=== PATIENT | female | born 1970 | race American Indian/Alaskan Native ===

== ENCOUNTER 2020-03-03 12:56 | Observation (INO) | payer BC ==
--- NOTE | 2020-03-03 13:11 | Event Note ---
ED Screening Note Date of service: 03/03/20 Time: 13:10 ED Screening Note: 50 y/o female comes in as referral from PCP concern for DKA. Increase fatigue, dry mouth, sob This initial assessment/diagnostic orders/clinical plan/treatment(s) is/are subject to change based on patients health status, clinical progression and re- assessment by fellow clinical providers in the ED. Further treatment and workup at subsequent clinical providers discretion. Patient/guardian urged not to elope from the ED as their condition may be serious if not clinically assessed and managed. Initial orders include:
[2020-03-03 13:49] LABS: Basophils % (Auto) 0.8 % (0.0-1.8); Eosinophils # (Auto) 0.1 K/mm3 (0.0-0.4); Eosinophils % (Auto) 1.3 % (0.0-4.3); Hematocrit 47.3 % (30.3-42.9); Hemoglobin 15.5 gm/dl (10.1-14.3); Lymphocytes # (Auto) 1.6 K/mm3 (1.2-5.4); Lymphocytes % (Auto) 26.5 % (13.4-35.0); Mean Corpuscular HGB Conc 33 % (30-34); Mean Corpuscular Volume 81 fl (79-97); Monocytes # (Auto) 0.6 K/mm3 (0.0-0.8); Monocytes % (Auto) 10.4 % (0.0-7.3); Red Blood Count 5.84 M/mm3 (3.65-5.03)
[2020-03-03 14:03] LABS: Bacteria,Urine 1+ /HPF (Negative); Bilirubin,Urine NEG (Negative); Blood,Urine SM (Negative); Color,Urine Yellow (Yellow); Mucus,Urine FEW /HPF; Urobilinogen,Urine < 2.0 mg/dL (<2.0)
[2020-03-03 14:04] LABS: Platelet Count 167 K/mm3 (140-440)
[2020-03-03 14:10] LABS: Alanine Aminotransferase 15 units/L (7-56); Albumin 4.4 g/dL (3.9-5); BUN/Creatinine Ratio 16; Blood Urea Nitrogen 13 mg/dL (7-17); Calcium 10.5 mg/dL (8.4-10.2); Hemolysis Index 11
--- NOTE | 2020-03-03 14:26 | Emergency Department Report ---
ED General Adult HPI - General Chief complaint: Weakness Stated complaint: DKA Time Seen by Provider: 03/03/20 13:06 Source: patient, RN notes reviewed Mode of arrival: Ambulatory Limitations: No Limitations - History of Present Illness Initial comments: pmd: Dr Fitzgerald The patient is a pleasant 50-year-old female. She is not known to myself previously. She has a history of obesity and diabetes. She takes metformin, 850 twice daily. She endorses sporadic compliance with this medication. She is sent to the emergency room by her primary care doctors office for diabetic ketoacidosis. The patient denies cough, fever, and exposure to coronavirus. Symptoms today include fatigue, weakness, dry mouth, malaise, lightheadedness. She does not have physical pain. Symptoms present for the past 3 to 4 days. They are constant, getting worse, worsened with physical exertion and decreased with rest. There is no complaint of headache, neck pain, chest pain, abdominal pain, and she denies DVT and pulmonary embolism risk factors. -: days(s) Consistency: constant Improves with: rest Worsens with: movement Associated Symptoms: denies other symptoms, other (See history of present illness) - Related Data Allergies Allergy/AdvReac Type Severity Reaction Status Date / Time No Known Allergies Allergy Unverified 03/03/20 13:13 ED Review of Systems ROS: Stated complaint: DKA Other details as noted in HPI Comment: See history of present illness ED Past Medical Hx - Past Medical History Hx Diabetes: Yes - Surgical History Additional Surgical History: Ambilical repair - Social History Smoking Status: Never Smoker Substance Use Type: Alcohol ED Physical Exam - General Limitations: No Limitations General appearance: alert, in no apparent distress - Head Head exam: Present: atraumatic, normocephalic - Eye Eye exam: Present: normal appearance, EOMI. Absent: nystagmus - ENT ENT exam: Present: normal exam, normal external ear exam - Neck Neck exam: Present: normal inspection, full ROM. Absent: tenderness, meningismus - Respiratory Respiratory exam: Present: normal lung sounds bilaterally. Absent: respiratory distress, wheezes, rales, rhonchi, stridor, chest wall tenderness, accessory muscle use, decreased breath sounds, prolonged expiratory - Cardiovascular Cardiovascular Exam: Present: normal rhythm, tachycardia, normal heart sounds. Absent: systolic murmur, diastolic murmur, rubs, gallop - GI/Abdominal GI/Abdominal exam: Present: soft. Absent: distended, tenderness, guarding, rebound, rigid, pulsatile mass - Extremities Exam Extremities exam: Present: normal inspection, full ROM, other (2+ pulses noted in the bilateral upper and lower extremities. There is no palpable cord. negative Homans sign. Muscular compartments are soft. The pelvis is stable.). Absent: pedal edema, calf tenderness - Back Exam Back exam: Present: normal inspection, full ROM. Absent: tenderness, CVA tenderness (R), CVA tenderness (L), paraspinal tenderness, vertebral tenderness - Neurological Exam Neurological exam: Present: alert, normal gait, other (No facial droop. Tongue midline. Extraocular movements intact bilaterally. Facial sensation intact to light touch in V1, V2, V3 distribution bilaterally. 5 and a 5 strength in 4 extremities. Sensation intact to light touch in 4 extremities.). Absent: motor sensory deficit - Psychiatric Psychiatric exam: Present: anxious - Skin Skin exam: Present: warm, dry, intact, normal color. Absent: rash ED Course Vital Signs 03/03/20 13:10 Temperature 98.2 F Pulse Rate 130 H Respiratory 20 Rate Blood Pressure 179/117 O2 Sat by Pulse 99 Oximetry - Reevaluation(s) Reevaluation #1: 03/03/20 15:29 Found to be hypomagnesemic as well, intravenous and oral magnesium supplementation ordered Reevaluation #2: 03/03/20 15:54 Please note that this patient presented to the emergency department during the 2019 COVID-19 pandemic ED Medical Decision Making - Lab Data Result diagrams: 03/03/20 13:37 03/03/20 14:57 Vital Signs 03/03/20 13:10 Temperature 98.2 F Pulse Rate 130 H Respiratory 20 Rate Blood Pressure 179/117 O2 Sat by Pulse 99 Oximetry Lab Results 03/03/20 03/03/20 03/03/20 Range/Units 13:37 13:37 13:37 WBC 6.0 (4.5-11.0) K/mm3 RBC 5.84 H (3.65-5.03) M/mm3 Hgb 15.5 H (10.1-14.3) gm/dl Hct 47.3 H (30.3-42.9) % MCV 81 (79-97) fl MCH 27 L (28-32) pg MCHC 33 (30-34) % RDW 16.0 H (13.2-15.2) % Plt Count 167 (140-440) K/mm3 Lymph % (Auto) 26.5 (13.4-35.0) % [place] % (Auto) 10.4 H (0.0-7.3) % Eos % (Auto) 1.3 (0.0-4.3) % Baso % (Auto) 0.8 (0.0-1.8) % Lymph # 1.6 (1.2-5.4) K/mm3 [place] # 0.6 (0.0-0.8) K/mm3 Eos # 0.1 (0.0-0.4) K/mm3 Baso # 0.0 (0.0-0.1) K/mm3 Seg Neutrophils % 61.0 (40.0-70.0) % Seg Neutrophils # 3.7 (1.8-7.7) K/mm3 VBG pH 7.263 L (7.320-7.420) Sodium 131 L (137-145) mmol/L Potassium 4.0 (3.6-5.0) mmol/L Chloride 93.0 L (98-107) mmol/L Carbon Dioxide 13 L (22-30) mmol/L Anion Gap 29 mmol/L BUN 13 (7-17) mg/dL Creatinine 0.8 (0.7-1.2) mg/dL Estimated GFR > 60 ml/min BUN/Creatinine Ratio 16 % Glucose 389 H (65-100) mg/dL Calcium 10.5 H (8.4-10.2) mg/dL Total Bilirubin 0.50 (0.1-1.2) mg/dL AST 10 (5-40) units/L ALT 15 (7-56) units/L Alkaline Phosphatase 114 (35-129) units/L Total Protein 7.0 (6.3-8.2) g/dL Albumin 4.4 (3.9-5) g/dL Albumin/Globulin Ratio 1.7 % Urine Color (Yellow) Urine Turbidity (Clear) Urine pH (5.0-7.0) Ur Specific [place] (1.003-1.030) Urine Protein (Negative) mg/dL Urine Glucose (UA) (Negative) mg/dL Urine Ketones (Negative) mg/dL Urine Blood (Negative) Urine Nitrite (Negative) Urine Bilirubin (Negative) Urine Urobilinogen (<2.0) mg/dL Ur Leukocyte Esterase (Negative) Urine WBC (Auto) (0.0-6.0) /HPF Urine RBC (Auto) (0.0-6.0) /HPF U Epithel Cells (Auto) (0-13.0) /HPF Urine Bacteria (Auto) (Negative) /HPF Urine Mucus /HPF 03/03/20 Range/Units Unknown WBC (4.5-11.0) K/mm3 RBC (3.65-5.03) M/mm3 Hgb (10.1-14.3) gm/dl Hct (30.3-42.9) % MCV (79-97) fl MCH (28-32) pg MCHC (30-34) % RDW (13.2-15.2) % Plt Count (140-440) K/mm3 Lymph % (Auto) (13.4-35.0) % [place] % (Auto) (0.0-7.3) % Eos % (Auto) (0.0-4.3) % Baso % (Auto) (0.0-1.8) % Lymph # (1.2-5.4) K/mm3 [place] # (0.0-0.8) K/mm3 Eos # (0.0-0.4) K/mm3 Baso # (0.0-0.1) K/mm3 Seg Neutrophils % (40.0-70.0) % Seg Neutrophils # (1.8-7.7) K/mm3 VBG pH (7.320-7.420) Sodium (137-145) mmol/L Potassium (3.6-5.0) mmol/L Chloride (98-107) mmol/L Carbon Dioxide (22-30) mmol/L Anion Gap mmol/L BUN (7-17) mg/dL Creatinine (0.7-1.2) mg/dL Estimated GFR ml/min BUN/Creatinine Ratio % Glucose (65-100) mg/dL Calcium (8.4-10.2) mg/dL Total Bilirubin (0.1-1.2) mg/dL AST (5-40) units/L ALT (7-56) units/L Alkaline Phosphatase (35-129) units/L Total Protein (6.3-8.2) g/dL Albumin (3.9-5) g/dL Albumin/Globulin Ratio % Urine Color Yellow (Yellow) Urine Turbidity Clear (Clear) Urine pH 5.0 (5.0-7.0) Ur Specific [place] 1.027 (1.003-1.030) Urine Protein 30 mg/dl (Negative) mg/dL Urine Glucose (UA) >=500 (Negative) mg/dL Urine Ketones 80 (Negative) mg/dL Urine Blood Sm (Negative) Urine Nitrite Neg (Negative) Urine Bilirubin Neg (Negative) Urine Urobilinogen < 2.0 (<2.0) mg/dL Ur Leukocyte Esterase Neg (Negative) Urine WBC (Auto) 2.0 (0.0-6.0) /HPF Urine RBC (Auto) 3.0 (0.0-6.0) /HPF U Epithel Cells (Auto) 4.0 (0-13.0) /HPF Urine Bacteria (Auto) 1+ (Negative) /HPF Urine Mucus Few /HPF - EKG Data -: EKG Interpreted by Nv EKG shows normal: sinus rhythm Rate: normal, tachycardia - EKG Data When compared to previous EKG there are: previous EKG unavailable 03/03/20 14:55 No prior EKG available for comparison. Sinus rhythm, tachycardia, normal axis, QTC prolonged, CT interval within normal limits, not a STEMI, there is no prior for comparison - Radiology Data Radiology results: report reviewed, image reviewed X-ray of the chest is negative for acute disease - Medical Decision Making Differential diagnosis, including but not limited to: Dehydration, electrolyte derangement, pneumonia, diabetic ketoacidosis Assessment and plan: Pleasant and cooperative 50-year-old female with hyperglycemia, anion gap acidosis, acidotic venous pH, suggestive of diabetic ketoacidosis. She is afebrile with reassuring vital signs, with exception of tachycardia, likely secondary to volume depletion. Meets criteria for hospitalization, initiation of IV fluids, and insulin drip. Discussed plan of care with patient, and she is amenable to hospitalization and admission. Patient's history, physical, laboratory studies and pertinent findings were endorsed to the hospital physician, Dr. Farnsworth, who has accepted the patient to the medical service for presumed diabetic ketoacidosis. Urinalysis is reviewed and appreciated, patient did not endorse dysuria, or tone quency, or obstructive symptoms, suspect this is most likely asymptomatic bacteriuria. Critical Care Time: Yes Critical care time in (mins) excluding proc time.: 35 Critical care attestation.: If time is entered above; I have spent that time in minutes in the direct care of this critically ill patient, excluding procedure time. ED Disposition Clinical Impression: DKA (diabetic ketoacidoses), Dehydration, Hypomagnesemia Disposition: 09 OP ADMIT IP TO THIS HOSP Is pt being admited?: Yes Does the pt Need Aspirin: No Condition: Serious Instructions: Diabetic Ketoacidosis (ED)
--- NOTE | 2020-03-03 14:27 | XRay Report ---
CHEST 2 VIEWS INDICATION / CLINICAL INFORMATION: sob. COMPARISON: None available. FINDINGS: SUPPORT DEVICES: None. HEART / MEDIASTINUM: No significant abnormality. LUNGS / PLEURA: No significant pulmonary or pleural abnormality. .No pneumothorax. ADDITIONAL FINDINGS: No significant additional findings. IMPRESSION: 1. No acute findings. Signer Name: Coleman Lund MD Signed: 03/03/2020 2:22 PM Workstation Name: [id number]
[2020-03-03] MEDS ORDERED: DEXTROSE 50% IN WATER (25GM) 50 ML SYRINGE IV PRN ×2 (14:36→15:23)
[2020-03-03] MEDS ORDERED: SODIUM CHLORIDE 0.9% 1000 ML 2,000 ML IV ONE ×2 (14:36→14:38)
[2020-03-03] MEDS ORDERED: INSULIN REGULAR, HUMAN 100 UNITS/1 ML IV ONE (14:36)
[2020-03-03] MEDS ORDERED: POTASSIUM CHLORIDE ER 20 MEQ TAB PO ONE (14:37)
[2020-03-03] MEDS ORDERED: SODIUM BICARB 8.4% 50 MEQ/50 ML SYRINGE IV ONE (14:39)
[2020-03-03] MEDS ORDERED: D5W/0.45% NACL/KCL 20 MEQ 20 MEQ/1,000 ML BAG IV SCH (15:00)
[2020-03-03] MEDS ORDERED: INSULIN REGULAR, HUMAN 100 UNITS in SODIUM CHLORIDE 0.9% 99 ML IV SCH (15:00)
[2020-03-03] MEDS ORDERED: ACETAMINOPHEN 325 MG TAB PO PRN (15:21)
[2020-03-03] MEDS ORDERED: ONDANSETRON 4 MG/2 ML INJ IV PRN (15:21)
[2020-03-03] MEDS ORDERED: MAGNESIUM SULFATE 2 GM/50 ML BAG IV ONE (15:28)
[2020-03-03 15:32] LABS: Hemolysis Index 31
[2020-03-03] MEDS ORDERED: MAGNESIUM OXIDE 400 MG TAB PO STA (15:38)
[2020-03-03 15:48] LABS: Calcium 10.2 mg/dL (8.4-10.2)
[2020-03-03 15:55] LABS: BUN/Creatinine Ratio 1
[2020-03-03 15:56] LABS: Blood Urea Nitrogen < 1 mg/dL (7-17)
[2020-03-03] MEDS ORDERED: MAGNESIUM SULFATE 1 GM in SODIUM CHLORIDE 0.9% 50 ML IV ONE (16:00)
--- NOTE | 2020-03-03 19:42 | History and Physical Report ---
History of Present Illness Date of admission: 03/03/20 15:21 Chief complaint: My diabetes is out of control History of present illness: 50 YO Female with Obesity, DM presents to ED for evaluation. Patient states that she was recently started on an oral hypoglycemic medication by her primary doctor. Patient also reports that she has experienced elevated blood glucose levels. Patient was seen and evaluated by her primary care physician today and was found to have elevated blood glucose levels around 400. Patient was instructed to seek further care at [facility]. Patient transported to [facility] via private vehicle. Patient seen and evaluated in the emergency department. Lab and imaging studies reviewed. Patient found to have uncontrolled diabetes mellitus with a blood glucose of 389. Patient treated with IV fluid resuscitation therapy, and sliding scale insulin therapy. Patient denies fever, chills, chest pain, palpitation, productive cough, fever, known ill contacts, or known expos ure to coronavirus. Patient placed in observation status and treated with IV fluid resuscitation therapy and sliding scale insulin therapy due to increased risk of decompensation. No prior admission for review. All medication listed at time of admission has been reconciled. Past History Past Medical History: diabetes, other (See HPI) Past Surgical History: hernia repair Social history: single. denies: smoking, alcohol abuse, prescription drug abuse Family history: diabetes, hypertension Medications and Allergies Allergies Allergy/AdvReac Type Severity Reaction Status Date / Time No Known Allergies Allergy Unverified 03/03/20 13:13 Active Meds: Active Medications Acetaminophen (Tylenol) 650 mg PO Q4H PRN PRN Reason: Pain MILD(1-3)/Fever >100.5/FERRARO Dextrose (D50w (25gm) Syringe) 50 ml IV Q30MIN PRN; Protocol PRN Reason: Hypoglycemia Insulin Human Lispro (Humalog) 0 unit SUB-Q Q6HR MASHA; Protocol Ondansetron HCl (Zofran) 4 mg IV Q8H PRN PRN Reason: Nausea And Vomiting Sodium Chloride (Sodium Chloride Flush Syringe 10 Ml) 10 ml IV BID MASHA Sodium Chloride (Sodium Chloride Flush Syringe 10 Ml) 10 ml IV PRN PRN PRN Reason: LINE FLUSH Review of Systems Constitutional: no weight loss, no weight gain, no fever, no chills Ears, nose, mouth and throat: no ear pain, no ear discharge, no tinnitis, no decreased hearing, no nose pain Breasts: no change in shape, no swelling, no mass Cardiovascular: no chest pain, no orthopnea, no palpitations, no rapid/irregular heart beat Respiratory: no cough, no cough with sputum, no excessive sputum, no hemoptysis, no shortness of breath, no dyspnea on exertion Gastrointestinal: no abdominal pain, no nausea, no vomiting, no diarrhea, no constipation Genitourinary Female: no pelvic pain, no flank pain, no menorrhagia, no dysuria, no urinary frequency Rectal: no pain, no incontinence, no bleeding Musculoskeletal: no neck stiffness, no neck pain, no shooting arm pain, no arm numbness/tingling Integumentary: no rash, no pruritis, no redness, no sores, no jaundice Neurological: no transient paralysis, no paralysis, no weakness, no numbness, no tingling, no tremors, no ataxia Psychiatric: no anxiety, no memory loss, no change in sleep habits, no sleep disturbances, no change in libido, no suicidal ideation, no disorientation Endocrine: polyphagia, polydipsia, polyuria, nocturia, no cold intolerance, no heat intolerance, no weight change, no proptosis, no deepening of the voice Hematologic/Lymphatic: no easy bruising, no easy bleeding, no lymphadenopathy, no lymphedema Allergic/Immunologic: no urticaria, no allergic rhinitis, no persistent in fections, no anaphylaxis Exam - Constitutional Vitals: Temp Pulse Resp BP Pulse Ox 98.2 F 100 H 17 134/58 100 03/03/20 13:10 03/03/20 18:46 03/03/20 18:46 03/03/20 18:46 03/03/20 18:46 General appearance: Present: mild distress - EENT Eyes: Present: PERRL ENT: hearing intact, clear oral mucosa - Neck Neck: Present: supple, normal ROM - Respiratory Respiratory effort: normal Respiratory: bilateral: CTA - Cardiovascular Heart Sounds: Present: S1 & S2. Absent: rub, click - Extremities Extremities: pulses symmetrical, No edema Peripheral Pulses: within normal limits - Abdominal General gastrointestinal: Present: soft, non-tender, non-distended, normal bowel sounds Female genitourinary: Present: normal - Integumentary Integumentary: Present: clear, warm, dry - Musculoskeletal Musculoskeletal: gait normal, strength equal bilaterally - Psychiatric Psychiatric: appropriate mood/affect, intact judgment & insight - Neurologic Neurologic: CNII-XII intact, moves all extremities Results - Labs CBC & Chem 7: 03/03/20 13:37 03/03/20 14:57 Labs: Abnormal lab results 03/03/20 03/03/20 03/03/20 Range/Units 13:21 13:37 13:37 RBC 5.84 H (3.65-5.03) M/mm3 Hgb 15.5 H (10.1-14.3) gm/dl Hct 47.3 H (30.3-42.9) % MCH 27 L (28-32) pg RDW 16.0 H (13.2-15.2) % [place] % (Auto) 10.4 H (0.0-7.3) % VBG pH (7.320-7.420) Sodium 131 L (137-145) mmol/L Chloride 93.0 L (98-107) mmol/L Carbon Dioxide 13 L (22-30) mmol/L BUN (7-17) mg/dL Glucose 389 H (65-100) mg/dL POC Glucose 301 H (70-105) Calcium 10.5 H (8.4-10.2) mg/dL Magnesium (1.7-2.3) mg/dL 03/03/20 03/03/20 03/03/20 Range/Units 13:37 14:23 14:57 RBC (3.65-5.03) M/mm3 Hgb (10.1-14.3) gm/dl Hct (30.3-42.9) % MCH (28-32) pg RDW (13.2-15.2) % [place] % (Auto) (0.0-7.3) % VBG pH 7.263 L (7.320-7.420) Sodium (137-145) mmol/L Chloride (98-107) mmol/L Carbon Dioxide (22-30) mmol/L BUN (7-17) mg/dL Glucose (65-100) mg/dL POC Glucose (70-105) Calcium (8.4-10.2) mg/dL Magnesium 1.20 L 1.30 L (1.7-2.3) mg/dL 03/03/20 03/03/20 Range/Units 14:57 17:50 RBC (3.65-5.03) M/mm3 Hgb (10.1-14.3) gm/dl Hct (30.3-42.9) % MCH (28-32) pg RDW (13.2-15.2) % [place] % (Auto) (0.0-7.3) % VBG pH (7.320-7.420) Sodium 130 L (137-145) mmol/L Chloride 92.8 L (98-107) mmol/L Carbon Dioxide 10 L (22-30) mmol/L BUN < 1 L (7-17) mg/dL Glucose 371 H (65-100) mg/dL POC Glucose 196 H (70-105) Calcium (8.4-10.2) mg/dL Magnesium (1.7-2.3) mg/dL Assessment and Plan - Patient Problems (1) Uncontrolled diabetes mellitus Current Visit: Yes Status: Acute Qualifiers: Diabetes mellitus type: type 1 Plan to address problem: Sliding scale insulin therapy, Accu-Chek, hypo-glycemia protocol, dietary education conducted, carbohydrate counting, serial blood glucose log as outpatient (2) Volume depletion Current Visit: Yes Status: Acute Plan to address problem: IV fluid resuscitation therapy, monitor urine output every shift. (3) Obesity (BMI 35.0-39.9 without comorbidity) Current Visit: Yes Status: Acute Plan to address problem: Balanced diet, increase physical activity at discharge. (4) DVT prophylaxis Current Visit: Yes Status: Acute Plan to address problem: SCD to bilateral lower extremities while in bed, patient is ambulatory.
[2020-03-03] MEDS: INSULIN LISPRO 100 UNIT/ML SUB-Q SCH (21:31)
[2020-03-04] MEDS: INSULIN LISPRO 100 UNIT/ML SUB-Q SCH ×3 (00:03→12:02)
--- NOTE | 2020-03-04 09:15 | Progress Note ---
Assessment and Plan Assessment and plan: -- Uncontrolled diabetes mellitus Current Visit: Yes Status: Acute Sliding scale insulin therapy, Accu-Chek, hypo-glycemia protocol, dietary education conducted, carbohydrate counting, serial blood glucose log as outpatient --Pseudohyponatremia; --Hypomagnesemia --Volume depletion Current Visit: Yes Status: Acute IV fluid resuscitation therapy, monitor urine output every shift. -- Obesity (BMI 35.0-39.9 without comorbidity) Current Visit: Yes Status: Acute Balanced diet, increase physical activity at discharge. -- DVT prophylaxis Current Visit: Yes Status: Acute SCD to bilateral lower extremities while in bed, patient is ambulatory. Hospitalist Physical - Constitutional Vitals: Temp Pulse Resp BP Pulse Ox 99.2 F 81 18 102/44 97 03/04/20 04:01 03/04/20 04:01 03/04/20 04:01 03/04/20 04:01 03/04/20 04:01 General appearance: Present: mild distress Results - Labs CBC & Chem 7: 03/03/20 13:37 03/03/20 14:57 Labs: Laboratory Last Values WBC 6.0 K/mm3 (4.5-11.0) 03/03/20 13:37 RBC 5.84 M/mm3 (3.65-5.03) H 03/03/20 13:37 Hgb 15.5 gm/dl (10.1-14.3) H 03/03/20 13:37 Hct 47.3 % (30.3-42.9) H 03/03/20 13:37 MCV 81 fl (79-97) 03/03/20 13:37 MCH 27 pg (28-32) L 03/03/20 13:37 MCHC 33 % (30-34) 03/03/20 13:37 RDW 16.0 % (13.2-15.2) H 03/03/20 13:37 Plt Count 167 K/mm3 (140-440) 03/03/20 13:37 Lymph % (Auto) 26.5 % (13.4-35.0) 03/03/20 13:37 [place] % (Auto) 10.4 % (0.0-7.3) H 03/03/20 13:37 Eos % (Auto) 1.3 % (0.0-4.3) 03/03/20 13:37 Baso % (Auto) 0.8 % (0.0-1.8) 03/03/20 13:37 Lymph # 1.6 K/mm3 (1.2-5.4) 03/03/20 13:37 [place] # 0.6 K/mm3 (0.0-0.8) 03/03/20 13:37 Eos # 0.1 K/mm3 (0.0-0.4) 03/03/20 13:37 Baso # 0.0 K/mm3 (0.0-0.1) 03/03/20 13:37 Seg Neutrophils % 61.0 % (40.0-70.0) 03/03/20 13:37 Seg Neutrophils # 3.7 K/mm3 (1.8-7.7) 03/03/20 13:37 VBG pH 7.263 (7.320-7.420) L 03/03/20 13:37 Sodium 130 mmol/L (137-145) L 03/03/20 14:57 Potassium 3.8 mmol/L (3.6-5.0) 03/03/20 14:57 Chloride 92.8 mmol/L (98-107) L 03/03/20 14:57 Carbon Dioxide 10 mmol/L (22-30) L 03/03/20 14:57 Anion Gap 31 mmol/L 03/03/20 14:57 BUN < 1 mg/dL (7-17) L 03/03/20 14:57 Creatinine 0.7 mg/dL (0.7-1.2) 03/03/20 14:57 Estimated GFR > 60 ml/min 03/03/20 14:57 BUN/Creatinine Ratio 1 % 03/03/20 14:57 Glucose 371 mg/dL (65-100) H 03/03/20 14:57 POC Glucose 166 (70-105) H 03/04/20 06:40 Calcium 10.2 mg/dL (8.4-10.2) 03/03/20 14:57 Phosphorus 3.30 mg/dL (2.5-4.5) 03/03/20 14:57 Magnesium 1.30 mg/dL (1.7-2.3) L 03/03/20 14:57 Total Bilirubin 0.50 mg/dL (0.1-1.2) 03/03/20 13:37 AST 10 units/L (5-40) 03/03/20 13:37 ALT 15 units/L (7-56) 03/03/20 13:37 Alkaline Phosphatase 114 units/L (35-129) 03/03/20 13:37 Total Creatine Kinase 58 units/L (30-135) 03/03/20 14:23 Total Protein 7.0 g/dL (6.3-8.2) 03/03/20 13:37 Albumin 4.4 g/dL (3.9-5) 03/03/20 13:37 Albumin/Globulin Ratio 1.7 % 03/03/20 13:37 TSH 2.150 mlU/mL (0.270-4.200) 03/03/20 14:23 Urine Color Yellow (Yellow) 03/03/20 Unknown Urine Turbidity Clear (Clear) 03/03/20 Unknown Urine pH 5.0 (5.0-7.0) 03/03/20 Unknown Ur Specific [place] 1.027 (1.003-1.030) 03/03/20 Unknown Urine Protein 30 mg/dl mg/dL (Negative) 03/03/20 Unknown Urine Glucose (UA) >=500 mg/dL (Negative) 03/03/20 Unknown Urine Ketones 80 mg/dL (Negative) 03/03/20 Unknown Urine Blood Sm (Negative) 03/03/20 Unknown Urine Nitrite Neg (Negative) 03/03/20 Unknown Urine Bilirubin Neg (Negative) 03/03/20 Unknown Urine Urobilinogen < 2.0 mg/dL (<2.0) 03/03/20 Unknown Ur Leukocyte Esterase Neg (Negative) 03/03/20 Unknown Urine WBC (Auto) 2.0 /HPF (0.0-6.0) 03/03/20 Unknown Urine RBC (Auto) 3.0 /HPF (0.0-6.0) 03/03/20 Unknown U Epithel Cells (Auto) 4.0 /HPF (0-13.0) 03/03/20 Unknown Urine Bacteria (Auto) 1+ /HPF (Negative) 03/03/20 Unknown Urine Mucus Few /HPF 03/03/20 Unknown [place]/IV: Voiding Method Toilet IV Catheter Type [Right Hand] INT / Saline Lock Active Medications - Current Medications Current Medications: Generic Name Dose Route Start Last Admin Trade Name Freq PRN Reason Stop Dose Admin Acetaminophen 650 mg 03/03/20 15:21 Tylenol PO Q4H PRN Pain MILD(1-3)/Fever >100.5/FERRARO Dextrose 50 ml 03/03/20 15:23 D50w (25gm) Syringe IV Q30MIN PRN Hypoglycemia Protocol Insulin Human Lispro 0 unit 03/03/20 18:00 03/04/20 06:38 Humalog SUB-Q 4 unit Q6HR MASHA Administration Protocol Ondansetron HCl 4 mg 03/03/20 15:21 Zofran IV Q8H PRN Nausea And Vomiting Sodium Chloride 10 ml 03/03/20 22:00 03/03/20 21:30 Sodium Chloride Flush Syringe 10 Ml IV 10 ml BID MASHA Administration Sodium Chloride 10 ml 03/03/20 15:21 Sodium Chloride Flush Syringe 10 Ml IV PRN PRN LINE FLUSH
[2020-03-04] MEDS ORDERED: SODIUM CHLORIDE 0.9% 1000 ML 1,000 ML IV SCH (09:30)
[2020-03-04 11:08] LABS: BUN/Creatinine Ratio 13; Blood Urea Nitrogen 9 mg/dL (7-17); Calcium 9.3 mg/dL (8.4-10.2); Hemolysis Index 8
[2020-03-04] MEDS ORDERED: FAMOTIDINE 10 MG TAB PO SCH (12:00)
[2020-03-04] MEDS ORDERED: FAMOTIDINE 20 MG TAB PO SCH (12:00)
[2020-03-04] MEDS ORDERED: MAGNESIUM SULFATE 4 GM/100 ML BAG IV ONE (14:15)
[2020-03-04] MEDS ORDERED: POTASSIUM CHLORIDE ER 20 MEQ TAB PO ONE (14:16)
[2020-03-04] MEDS: metFORMIN 850 MG TAB PO SCH ×2 (14:17→17:45)
--- NOTE | 2020-03-04 14:50 | Discharge Summary ---
Providers - Providers Date of Admission: 03/03/20 15:21 Date of discharge: 03/04/20 Attending physician: MAKSIM ZURITA Primary care physician: LILLIAN BROOKE Hospitalization Reason for admission: Hyperglycemia/uncontrolled diabetes mellitus Condition: Fair Pertinent studies: Chest x-ray Hospital course: 50 YO Female with Obesity, DM presents to ED for evaluation. Patient states that she was recently started on an oral hypoglycemic medication by her primary doctor. Patient also reports that she has experienced elevated blood glucose levels. Patient was seen and evaluated by her primary care physician today and was found to have elevated blood glucose levels around 400. Patient was instructed to seek further care at [facility]. Patient transported to [facility] via private vehicle. Patient seen and evaluated in the emergency department. Lab and imaging studies reviewed. Patient found to have uncontrolled diabetes mellitus with a blood glucose of 389. Patient treated with IV fluid resuscitation therapy, and sliding scale insulin therapy. Discharge diagnosis: -- Uncontrolled diabetes mellitus Current Visit: Yes Status: Acute Moderate control secondary to noncompliance , Accu-Cheks sliding scale coverage ADA diet, oral hypoglycemics, insulin as needed A1c 13.5, diabetic diet education, diabetic education --Pseudohyponatremia; Current Visit: Yes Status: Acute Due to hyperglycemia, improving as the blood sugars are improved. --Hypomagnesemia Current Visit: Yes Status: Acute Replenished with magnesium sulfate. --Hypokalemia; Current Visit: Yes Status: Acute Replanish with KCl --Volume depletion Current Visit: Yes Status: Acute IV fluid resuscitation therapy, monitor urine output every shift. -- Obesity (BMI 35.0-39.9 without comorbidity) Current Visit: Yes Status: Acute Balanced diet, increase physical activity at discharge. --Medical noncompliance; Patient strongly advised to comply with medications diet F/U visits and exercise -- DVT prophylaxis Current Visit: Yes Status: Acute . Will complete magnesium and potassium replacement And DC home Patient will check magnesium and potassium at PMDs office in 2 to 3 days Disposition: DC-01 TO HOME OR SELFCARE Time spent for discharge: 32 min Core Measure Documentation - Palliative Care Palliative Care/ Comfort Measures: Not Applicable - Core Measures Any of the following diagnoses?: none Exam - Constitutional Vitals: Temp Pulse Resp BP Pulse Ox 98.1 F 104 H 18 154/76 98 03/04/20 09:29 03/04/20 09:29 03/04/20 09:29 03/04/20 09:29 03/04/20 09:29 General appearance: Present: no acute distress, well-nourished, obese - EENT Eyes: Present: PERRL, EOM intact - Neck Neck: Present: supple, normal ROM - Respiratory Respiratory effort: normal Respiratory: bilateral: diminished, negative: rales, rhonchi, wheezing - Cardiovascular Rhythm: regular Heart Sounds: Present: S1 & S2 - Extremities Extremities: no ischemia, No edema - Abdominal General gastrointestinal: Present: soft, non-tender, non-distended, normal bowel sounds - Integumentary Integumentary: Present: clear, warm - Musculoskeletal Musculoskeletal: strength equal bilaterally - Psychiatric Psychiatric: appropriate mood/affect, cooperative - Neurologic Neurologic: CNII-XII intact, moves all extremities Plan Activity: no restrictions Diet: diabetic Additional Instructions: Patient strongly advised to comply with medications, ADA diet, exercise and follow-up visits. Patient advised to see private rackman for better control of blood sugars. Advised exercise as tolerated and weight reduction Follow up with: LILLIAN BROOKE JR, MD [Primary Care Provider] - 3-5 Days Prescriptions: metFORMIN [Glucophage] 850 mg PO BIDDIAB #60 tablet Insulin Regular, Human [Novolin R] 5 units SC ACHS #2 vial Famotidine [Pepcid] 20 mg PO BID #30 tablet lisinopriL [Zestril TAB] 10 mg PO QDAY #30 tablet
[2020-03-04 17:00] VITALS: BP 150/81
--- NOTE | 2020-03-04 19:11 | Event Note ---
Date: 03/04/20 Hypomagnesemia; corrected with magnesium sulfate Hypokalemia; corrected with oral KCl Follow-up magnesium level; 5.6 Patient advised to follow with primary care physician in 2 to 3 days to check magnesium and potassium
[2020-03-05] MEDS ORDERED: LISINOPRIL 10 MG TAB PO SCH (10:00)
== END 2020-03-04 18:40 | disposition home or self-care (01) ==
LOC: ED 12:56 → 4A 15:21
PROVIDERS: ADMIT Internal Medicine; ATTEND Internal Medicine
DX: E11.65 Type 2 diabetes mellitus with hyperglycemia (principal); E86.9 Volume depletion, unspecified; E66.9 Obesity, unspecified; E83.42 Hypomagnesemia; E87.6 Hypokalemia; E87.1 Hypo-osmolality and hyponatremia; E11.10 Type 2 diabetes mellitus with ketoacidosis without coma; E86.0 Dehydration; Z91.19 Patient's noncompliance with other medical treatment and regimen; Z79.4 Long term (current) use of insulin; Z79.899 Other long term (current) drug therapy
CPT/HCPCS: 36415; 71046; 80048; 80053; 81001; 82550; 82805; 82962; 83036; 83735; 84100; 84443; 85025; 93005; 96361; 96365; 96366; 96372; 96375; 99291; G0378; J3475; J7030; J1815

== ENCOUNTER 2020-03-07 22:51 | Emergency (ER) | payer BC ==
[2020-03-08] MEDS ORDERED: LORazepam 2 MG/ML VIAL IV STA (00:19)
[2020-03-08] MEDS ORDERED: SODIUM CHLORIDE 0.9% 1000 ML 1,000 ML IV ONE ×2 (00:19→01:51)
[2020-03-08] MEDS ORDERED: hydrALAZINE 20 MG/1 ML INJ IV ONE (00:19)
--- NOTE | 2020-03-08 00:20 | Emergency Department Report ---
<ILEANA ARREOLA - Last Filed: 03/08/20 01:14> ED General Adult HPI - General Chief complaint: Hyperglycemia Stated complaint: HIGH BLOOD SUGAR AND BLOOD PRESSURE Time Seen by Provider: 03/08/20 00:03 Source: patient, RN notes reviewed, old records reviewed Mode of arrival: Ambulatory Limitations: No Limitations - History of Present Illness Initial comments: Patient is a 50-year-old female whom I have evaluated in the past. She has a history of diabetes, hypertension, obesity, and was recently admitted to this hospital for diabetic ketoacidosis by myself. Patient presented to the ER with a complaint of anxiety, chest tightness, chest racing, and persistently high blood sugar levels. She reports that she is checking her blood sugar levels frequently, and has found them to be elevated. This is causing her to feel very anxious, and her anxiety is associated with chest tightness and heart racing. She denies vomiting, diaphoresis and exertional shortness of breath. There is no calf pain or calf swelling. The patient is insistent that since her recent hospitalization, she has been very conscientious about her diet, and medication administration. There is no complaint of fever, cough, urinary symptom, abdomi nal pain, there is no complaint of headache, and the chest pressure and discomfort does not radiate to the back, arms or neck. She reports that she is feeling very very anxious. -: Gradual, days(s) Location: chest Radiation: non-radiation Quality: other (Pressure, heart racing) Consistency: constant Improves with: none Worsens with: other (Symptoms worsen as the patient thinks about her hyperglycemia) - Related Data Previous Rx's Medication Instructions Recorded Last Taken Type Famotidine [Pepcid] 20 mg PO BID #30 tablet 03/04/20 Unknown Rx Insulin Regular, Human [Novolin R] 5 units SC ACHS #2 vial 03/04/20 Unknown Rx lisinopriL [Zestril TAB] 10 mg PO QDAY #30 tablet 03/04/20 Unknown Rx metFORMIN [Glucophage] 850 mg PO BIDDIAB #60 tablet 03/04/20 Unknown Rx Allergies Allergy/AdvReac Type Severity Reaction Status Date / Time No Known Allergies Allergy Unverified 03/03/20 13:13 ED Review of Systems Constitutional: denies: fever Eyes: denies: eye discharge ENT: denies: congestion Respiratory: denies: wheezing Cardiovascular: palpitations. denies: syncope Gastrointestinal: denies: vomiting Genitourinary: denies: dysuria Musculoskeletal: as per HPI Skin: as per HPI Neurological: as per HPI Psychiatric: as per HPI, anxiety Hematological/Lymphatic: as per HPI ED Past Medical Hx - Past Medical History Hx Hypertension: Yes Hx Diabetes: Yes - Surgical History Additional Surgical History: Umbilical hernia repair x 3 - Social History Smoking Status: Never Smoker Substance Use Type: Alcohol - Medications Home Medications: Home Medications Medication Instructions Recorded Confirmed Last Taken Type Famotidine [Pepcid] 20 mg PO BID #30 tablet 03/04/20 Unknown Rx Insulin Regular, Human [Novolin R] 5 units SC ACHS #2 vial 03/04/20 Unknown Rx lisinopriL [Zestril TAB] 10 mg PO QDAY #30 tablet 03/04/20 Unknown Rx metFORMIN [Glucophage] 850 mg PO BIDDIAB #60 tablet 03/04/20 Unknown Rx ED Physical Exam - General Limitations: No Limitations General appearance: alert, anxious, in distress, obese - Head Head exam: Present: atraumatic, normocephalic - Eye Eye exam: Present: normal appearance, EOMI. Absent: nystagmus - ENT ENT exam: Present: normal exam, normal orophraynx, mucous membranes moist, normal external ear exam - Neck Neck exam: Present: normal inspection, full ROM. Absent: tenderness, meningismus - Respiratory Respiratory exam: Present: normal lung sounds bilaterally. Absent: respiratory distress - Cardiovascular Cardiovascular Exam: Present: normal rhythm, tachycardia, normal heart sounds. Absent: systolic murmur, diastolic murmur, rubs, gallop - GI/Abdominal GI/Abdominal exam: Present: soft. Absent: distended, tenderness, guarding, rebound, rigid, pulsatile mass - Extremities Exam Extremities exam: Present: normal inspection, full ROM, other (2+ pulses noted in the bilateral upper and lower extremities. There is no palpable cord. negative Homans sign. Muscular compartments are soft. The pelvis is stable.). Absent: pedal edema, calf tenderness - Back Exam Back exam: Present: normal inspection, full ROM. Absent: tenderness, CVA tenderness (R), CVA tenderness (L), paraspinal tenderness, vertebral tenderness - Neurological Exam Neurological exam: Present: alert, normal gait, other (No facial droop. Tongue midline. Extraocular movements intact bilaterally. Facial sensation intact to light touch in V1, V2, V3 distribution bilaterally. 5 and a 5 strength in 4 extremities. Sensation intact to light touch in 4 extremities.). Absent: motor sensory deficit - Psychiatric Psychiatric exam: Present: anxious - Skin Skin exam: Present: warm, dry, intact, normal color. Absent: rash ED Course - Reevaluation(s) Reevaluation #1: 03/08/20 00:37 Differential diagnosis, including but not limited to: Hyperglycemia, electrolyte derangement, anxiety, medication noncompliance Assessment and plan: 50-year-old female with tachycardia, hypertension, anxiety, report of persistently high blood sugar levels, presenting with complaints of high blood sugar, chest tightness, and sensation of heart racing and feeling very anxious. Cardiovascular risk factor profile is reviewed and appreciated, however, based off of the history and physical, it appears that the patient is most likely experiencing anxiety and panic, secondary to hyperglycemia. In addition, she indicates she is not taking her blood pressure medication for the past 36 hours. Therefore, medication compliance may be in question. The patient appears motivated and determined to improve her hyperglycemia and diabetes in general. Counseled the patient that it may take a few weeks to a few months to consistently improve her hyperglycemia. Encourage compliance with diabetic appropriate diet. We will check basic laboratory studies, EKG x2, troponin x2, x-ray of the chest, and reassess. Reevaluation #2: 03/08/20 01:14 Tachycardia improved. Laboratory studies pending. care will be transferred to Dr Reeder to follow up on labs round 1, and ekg and tropnin set 2 Assuming no significant abnormality, we would consider the patient suitable for discharge with outpatient follow-up. ED Medical Decision Making - Lab Data Vital Signs 03/07/20 22:56 Temperature 98.1 F Pulse Rate 120 H Respiratory 18 Rate Blood Pressure 202/89 O2 Sat by Pulse 98 Oximetry - EKG Data -: EKG Interpreted by Me EKG shows normal: sinus rhythm, axis, intervals, QRS complexes, ST-T waves Rate: normal - EKG Data When compared to previous EKG there are: no significant change Interpretation: normal EKG, unchanged when compared t (March 03, 2020) ED Disposition Clinical Impression: Uncontrolled hypertension, Uncontrolled diabetes mellitus, Hypomagnesemia, Hypokalemia, Chest discomfort Disposition: DC-01 TO HOME OR SELFCARE Condition: Stable Instructions: Hypertension (ED), Diabetes Mellitus Type 2 in Adults (ED), Hypokalemia (ED), Chest Pain (ED) Additional Instructions: Continue outpatient medications. Please make certain to continue with a diabetic appropriate diet. Participate in physical activities as tolerated, and please be aware that hyperglycemia and diabetes may take weeks and months to improve. Patient should continue current outpatient medications as prescribed. Follow-up with a primary care doctor or school office manager for complaint of chest tightness and heart racing within the next 3 to 5 days. Follow-up with your primary care doctor within the next 4 weeks for high blood pressure, and high blood sugar. Please return to the emergency room right away with new, worsened or different symptoms, or symptoms not present on the initial emergency room evaluation. Referrals: LILLIAN BROOKE JR, MD [Primary Care Provider] - 3-5 Days [facility] [Provider Group] - 3-[address] [facility] [Provider Group] - 3-5 Days <EMIL REEDER - Last Filed: 03/08/20 04:37> ED Review of Systems ROS: Stated complaint: HIGH BLOOD SUGAR AND BLOOD PRESSURE Other details as noted in HPI ED Course Vital Signs 03/07/20 03/08/20 03/08/20 22:56 00:26 00:53 Temperature 98.1 F Pulse Rate 120 H 88 Respiratory 18 16 Rate Blood Pressure 202/89 171/88 O2 Sat by Pulse 98 98 Oximetry 03/08/20 03/08/20 03/08/20 01:00 02:01 03:01 Temperature Pulse Rate 98 H 89 96 H Respiratory 25 H 21 22 Rate Blood Pressure 171/88 171/88 155/73 O2 Sat by Pulse 98 98 98 Oximetry ED Medical Decision Making - Lab Data Result diagrams: 03/08/20 00:24 03/08/20 03:19 - Medical Decision Making ekg unchanged upon repeat, nsr without ischemic findings. second trop neg repeat bmp reviewed and shows improvement. meds adjusted (pt received kcl 40meq po and 20meq IV prior to d/c) pt will be d/sixto home upon completion of kcl infusion Critical care attestation.: If time is entered above; I have spent that time in minutes in the direct care of this critically ill patient, excluding procedure time. ED Disposition Is pt being admited?: No Time of Disposition: 04:37
[2020-03-08 01:24] LABS: Hematocrit 42.9 % (30.3-42.9); Hemoglobin 13.9 gm/dl (10.1-14.3)
[2020-03-08 01:36] LABS: INR 0.89 (0.87-1.13)
[2020-03-08] MEDS ORDERED: MAGNESIUM SULFATE 2 GM/50 ML BAG IV ONE (01:46)
[2020-03-08 01:47] LABS: BUN/Creatinine Ratio 13; Blood Urea Nitrogen 9 mg/dL (7-17); Calcium 9.5 mg/dL (8.4-10.2); Hemolysis Index 1
[2020-03-08] MEDS ORDERED: INSULIN REGULAR, HUMAN 100 UNITS/1 ML IV ONE (01:50)
[2020-03-08] MEDS ORDERED: POTASSIUM CHLORIDE ER 20 MEQ TAB PO ONE (01:50)
[2020-03-08] MEDS ORDERED: MAGNESIUM OXIDE 400 MG TAB PO STA (01:51)
[2020-03-08] MEDS ORDERED: POTASSIUM CHLORIDE 10 MEQ 10 MEQ/100 ML BAG IV SCH ×2 (02:00→03:00)
--- NOTE | 2020-03-08 02:09 | XRay Report ---
CHEST 1 VIEW 0142 INDICATION / CLINICAL INFORMATION: chest pressure heart racing. COMPARISON: 03/03/2020 FINDINGS: SUPPORT DEVICES: None HEART / MEDIASTINUM: No significant abnormality. LUNGS / PLEURA: No significant pulmonary or pleural abnormality. No pneumothorax. ADDITIONAL FINDINGS: No significant additional findings. IMPRESSION: No significant acute abnormality Signer Name: Kurt Mccoy MD Signed: 03/08/2020 2:04 AM Workstation Name: [id number]
[2020-03-08 03:36] VITALS: BP 155/73
[2020-03-08 04:00] LABS: BUN/Creatinine Ratio 10; Blood Urea Nitrogen 7 mg/dL (7-17); Calcium 9.3 mg/dL (8.4-10.2); Hemolysis Index 49
== END 2020-03-08 04:55 | disposition home or self-care (01) ==
LOC: ED 22:51
DX: I10 Essential (primary) hypertension (principal); E11.65 Type 2 diabetes mellitus with hyperglycemia; E83.42 Hypomagnesemia; E87.6 Hypokalemia; R07.89 Other chest pain
CPT/HCPCS: 36415; 71045; 80048; 82550; 82962; 83735; 84484; 85014; 85018; 85049; 85610; 93005; 96361; 96365; 96366; 96368; 96375; 99284; J0360; J2060; J3475; J3480; J7030; J1815

== ENCOUNTER 2020-03-12 00:13 | Emergency (ER) | payer BC ==
--- NOTE | 2020-03-12 02:59 | Emergency Department Report ---
ED General Adult HPI - General Chief complaint: High BP Stated complaint: BLOOD PRESSURE PROBLEM Time Seen by Provider: 03/12/20 01:26 Source: patient Mode of arrival: Ambulatory Limitations: No Limitations - History of Present Illness Initial comments: 50-year-old female with past medical history of hypertension and morbidly obese presents emergency department complaining of hypertension which was discovered with a home blood pressure machine associated with a vague episode of dizziness. She reports no chest pain, no palpitation, no headache, no blurred vision, no shortness of breath came to emergency department for blood pressure evaluation. Radiation: non-radiation Severity scale (0 -10): 0 Improves with: none Worsens with: none Associated Symptoms: denies other symptoms Treatments Prior to Arrival: none - Related Data Previous Rx's Medication Instructions Recorded Last Taken Type Famotidine [Pepcid] 20 mg PO BID #30 tablet 03/04/20 Unknown Rx Insulin Regular, Human [Novolin R] 5 units SC ACHS #2 vial 03/04/20 Unknown Rx lisinopriL [Zestril TAB] 10 mg PO QDAY #30 tablet 03/04/20 Unknown Rx metFORMIN [Glucophage] 850 mg PO BIDDIAB #60 tablet 03/04/20 Unknown Rx Allergies Allergy/AdvReac Type Severity Reaction Status Date / Time No Known Allergies Allergy Unverified 03/03/20 13:13 ED Review of Systems ROS: Stated complaint: BLOOD PRESSURE PROBLEM Other details as noted in HPI Comment: All other systems reviewed and negative ED Past Medical Hx - Past Medical History Previous Medical History?: Yes Hx Hypertension: Yes Hx Diabetes: Yes - Surgical History Past Surgical History?: Yes Additional Surgical History: Umbilical hernia repair x 2 - Social History Smoking Status: Never Smoker Substance Use Type: Alcohol - Medications Home Medications: Home Medications Medication Instructions Recorded Confirmed Last Taken Type Famotidine [Pepcid] 20 mg PO BID #30 tablet 03/04/20 Unknown Rx Insulin Regular, Human [Novolin R] 5 units SC ACHS #2 vial 03/04/20 Unknown Rx lisinopriL [Zestril TAB] 10 mg PO QDAY #30 tablet 03/04/20 Unknown Rx metFORMIN [Glucophage] 850 mg PO BIDDIAB #60 tablet 03/04/20 Unknown Rx ED Physical Exam - General Limitations: No Limitations General appearance: alert, in no apparent distress - Head Head exam: Present: atraumatic, normocephalic - Eye Eye exam: Present: normal appearance, PERRL, EOMI. Absent: nystagmus Pupils: Present: normal accommodation, other - ENT ENT exam: Present: mucous membranes moist - Neck Neck exam: Present: normal inspection, full ROM, other (No bruits). Absent: tenderness - Respiratory Respiratory exam: Present: normal lung sounds bilaterally. Absent: respiratory distress, wheezes, rales, chest wall tenderness, accessory muscle use - Cardiovascular Cardiovascular Exam: Present: regular rate, normal rhythm. Absent: systolic murmur, diastolic murmur, rubs, gallop - GI/Abdominal GI/Abdominal exam: Present: soft, normal bowel sounds. Absent: distended, guard ing, hyperactive bowel sounds, hypoactive bowel sounds, organomegaly - Extremities Exam Extremities exam: Present: normal inspection, normal capillary refill - Back Exam Back exam: Present: normal inspection. Absent: CVA tenderness (R), CVA tenderness (L) - Neurological Exam Neurological exam: Present: alert, oriented X3, CN II-XII intact - Psychiatric Psychiatric exam: Present: normal affect, normal mood - Skin Skin exam: Present: warm, dry, intact, normal color. Absent: rash ED Course Vital Signs 03/12/20 03/12/20 03/12/20 00:36 00:55 01:01 Temperature 98.1 F Pulse Rate 92 H Respiratory 18 Rate Blood Pressure 174/94 164/90 O2 Sat by Pulse 98 98 Oximetry 03/12/20 03/12/20 03/12/20 01:02 01:04 01:06 Temperature Pulse Rate Respiratory Rate Blood Pressure O2 Sat by Pulse 96 98 98 Oximetry 03/12/20 03/12/20 03/12/20 01:08 01:09 01:30 Temperature Pulse Rate 71 Respiratory 18 Rate Blood Pressure 157/86 142/64 O2 Sat by Pulse 97 100 96 Oximetry 03/12/20 03/12/20 03/12/20 01:56 01:58 02:00 Temperature Pulse Rate Respiratory Rate Blood Pressure 157/86 157/86 144/75 O2 Sat by Pulse 99 98 98 Oximetry 03/12/20 03/12/20 03/12/20 02:02 02:04 02:06 Temperature Pulse Rate Respiratory Rate Blood Pressure 144/75 144/75 144/75 O2 Sat by Pulse 99 99 99 Oximetry 03/12/20 03/12/20 03/12/20 02:08 02:10 02:12 Temperature Pulse Rate Respiratory Rate Blood Pressure 144/75 144/75 144/75 O2 Sat by Pulse 99 97 98 Oximetry 03/12/20 03/12/20 03/12/20 02:14 02:16 02:18 Temperature Pulse Rate Respiratory Rate Blood Pressure 144/75 144/75 144/75 O2 Sat by Pulse 99 98 98 Oximetry 03/12/20 03/12/20 03/12/20 02:20 02:22 02:24 Temperature Pulse Rate Respiratory Rate Blood Pressure 142/64 142/64 142/64 O2 Sat by Pulse 98 98 98 Oximetry 03/12/20 03/12/20 03/12/20 02:26 02:32 02:34 Temperature Pulse Rate Respiratory Rate Blood Pressure 142/64 142/64 152/99 O2 Sat by Pulse 98 99 100 Oximetry 03/12/20 03:00 Temperature Pulse Rate Respiratory Rate Blood Pressure 143/89 O2 Sat by Pulse 96 Oximetry ED Medical Decision Making - Medical Decision Making 50-year-old female with history of hypertension presents emerged department complaining of elevated blood pressure at home however the our visit blood pressure has been maintained from systolic of 1 40-1 60 over diastolic of the 90s and she is been asymptomatic she is ambulatory with no complications no chest pain. Critical care attestation.: If time is entered above; I have spent that time in minutes in the direct care of this critically ill patient, excluding procedure time. ED Disposition Clinical Impression: Elevated blood pressure reading, Hypertension Disposition: DC-01 TO HOME OR SELFCARE Is pt being admited?: No Does the pt Need Aspirin: No Condition: Stable Instructions: Chronic Hypertension (ED), Hypertension (ED) Additional Instructions: Please keep your appointment with your primary care provider today Referrals: PRIMARY CARE, [Referring] - 24 Hours
[2020-03-12 03:13] VITALS: BP 143/89
== END 2020-03-12 03:12 | disposition home or self-care (01) ==
LOC: ED 00:13
DX: I10 Essential (primary) hypertension (principal); E11.9 Type 2 diabetes mellitus without complications; Z79.899 Other long term (current) drug therapy; Z98.890 Other specified postprocedural states
CPT/HCPCS: 99282